=== PATIENT | male | born 1985 | race African-American/Black ===

== ENCOUNTER 2018-11-17 22:27 | Emergency (ER) | payer MEDICAID ==
[~2018-11-17] VITALS: Ht 182.9 cm; Wt 97.5 kg
--- NOTE | 2018-11-17 22:51 | NUR ---
ED Nurse Note: Pt ambulated to ED from home c/o L ear pain and decreased hearing x a few dasy, denies fever at home. VSS
[2018-11-17 22:52] VITALS: BP 143/83
--- NOTE | 2018-11-17 22:54 | NUR ---
Betty andres in EDM - 11/17/18 at 2255 by KDEARING ED Nurse Note: RT giving breathing tx
--- NOTE | 2018-11-17 23:14 | Emergency Room Report ---
History of Present Illness General Chief Complaint: Earache Source: Patient Present Illness HPI Patient presents with ear pain on the left-hand side. Is been going on for 3 to 5 days. He is been trying to clean it aggressively. He denies any change in hearing. Ears tender to touch when he touches it. He is been using over-the -counter ear solutions that have not helped. He rates the pain 10/10 and aching. He denies sore throat, fevers, chills, nausea, vomiting, cough or neck pain. He denies headache or visual changes. There are no rashes. There was no trauma. 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 Nursing Documentation: PMH: Agreed; PSxH: Agreed Nursing Documentation-PMH Past Medical History: No Stated History Review of Systems All Other Systems: negative except mentioned in HPI Physical Exam Vital Signs Date Time Temp Pulse Resp B/P (MAP) Pulse Ox O2 Delivery O2 Flow Rate FiO2 11/17/18 22:43 98.1 73 18 143/83 (103) 96 Room Air Sp02 EP Interpretation: reviewed, normal General Appearance: well appearing, no apparent distress, GCS 15 Head: normocephalic Eyes: bilateral eye normal inspection, bilateral eye PERRL ENT: normal pharynx, moist mucus membranes, other - Left ear canal with swelling and some fluid but tympanic membrane is normal. Pinna tenderness but no mastoid tenderness. Neck: full range of motion, supple Respiratory: lungs clear Cardiovascular #1: regular rate, rhythm Cardiovascular #2: 2+ radial (R) Gastrointestinal: normal inspection Musculoskeletal: gait/station normal Neurologic: alert, grossly normal Psychiatric: mood/affect normal Skin: normal color, no rash Medical Decision Making Diagnostic Impression: Primary Impression: Left otitis externa Qualified Codes: H60.312 - Diffuse otitis externa, left ear ER Course Patient presents with left ear pain. Differential includes otitis media versus otitis externa. Based on the clinical exam otitis externa is present. An ear wick and antibiotic suspension will be given. The patient is also given ibuprofen. Advised patient how to use the antibiotic drops. Pain is improved. Also advised the need to follow-up with an outpatient doctor. Patient stable for outpatient observation and treatment. Last Vital Signs Date Time Temp Pulse Resp B/P (MAP) Pulse Ox O2 Delivery O2 Flow Rate FiO2 11/17/18 23:31 98.1 11/17/18 23:28 78 18 143/83 96 Room Air Status: improved Disposition: HOME, SELF-CARE Condition: Improved Scripts Ibuprofen* (MOTRIN*) 600 Mg Tablet 600 MG ORAL Q6H PRN for For Pain, #20 TAB 0 Refills Prov: Antonio Kate MD 11/17/18 Referrals: NOT CHOSEN IPA/,REFERRING (PCP) Antonio Kate MD Nov 17, 2018 23:14
[2018-11-17] MEDS ORDERED: Cortisporin OTIC Susp 10ml LEFT EAR ONE (23:15)
[2018-11-17] MEDS ORDERED: IBUPROFEN600 MG ORAL (23:23)
[2018-11-17 23:28] VITALS: BP 143/83
--- NOTE | 2018-11-17 23:32 | NUR ---
ED Discharge Note: PRESCRIPTIONS AND DISCHARGE PAPERWORK EXPLAINED TO PT. PT VERBALIZES UNDERSTANDING AND ALL QUESTIONS ANSWERED. PRESCRIPTIONS AND DISCHARGE PAPERWORK GIVEN TO PT AND ID [id number] REMOVED. 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
== END 2018-11-17 23:30 | disposition home or self-care (01) ==
LOC: EMR 23:06
DX: H60.312 Diffuse otitis externa, left ear (principal)
CPT/HCPCS: 99282